=== PATIENT | male | born 1985 | race Asian ===

== ENCOUNTER 2016-12-09 07:52 | Day surgery (SDC) | payer OTHER ==
[~2016-12-09] VITALS: Ht 172.7 cm; Wt 83.0 kg
[2016-12-09 08:57] VITALS: BP 127/88
[2016-12-09] MEDS ORDERED: MULT-208 PO (09:04)
[2016-12-09] MEDS ORDERED: L.AC1CAP6 PO (09:04)
[2016-12-09] MEDS ORDERED: LORA-439 PO (09:04)
[2016-12-09] MEDS ORDERED: LIDOCAINE 1%, 20ML ONE (09:28)
[2016-12-09] MEDS ORDERED: NALOXONE 1 MG/ML, 2ML ONE (09:49)
[2016-12-09] MEDS ORDERED: FLUMAZENIL 0.1 MG/1 ML, 5ML ONE (09:49)
[2016-12-09] MEDS ORDERED: FENTANYL PF 100 MCG/2ML ONE (09:49)
[2016-12-09] MEDS ORDERED: MIDAZOLAM 1 MG/ML, 5ML ONE (09:49)
== END 2016-12-09 11:50 ==
LOC: OUT 07:52
PROVIDERS: ATTEND Internal Medicine Gastroenterology
DX: E88.01 Alpha-1-antitrypsin deficiency (principal)
CPT/HCPCS: 36415; 47000; 76942; 85610; 88307; 88313; 99156; 99157; J2250; J3010; J3490; J2310